=== PATIENT | male | born 1970 | race African-American/Black ===

== ENCOUNTER 2016-07-03 19:09 | Emergency (ER) | payer OTHER ==
[~2016-07-03] VITALS: Ht 167.6 cm; Wt 84.4 kg
[~2016-07-03 19:09] MED LIST: NOHOMEMEDS
[2016-07-03 20:03] LABS: HEMATOCRIT 53.3 % (38.0-50.0); MCH 28.8 PG (29.0-34.0); MCHC 33.8 G/DL (30.0-36.0); MCV 85.1 FL (86-99); MEAN PLAT.VOLUME 10.1 uM^3 (9.0-12.4); PLATELET COUNT 283 K/uL (156-360); RBC DIS.WIDTH-CV 13.2 % (11.8-14.6); RED BLOOD COUNT 6.26 M/uL (4.00-5.50); WHITE BLOOD COUNT 5.7 K/uL (4.1-10.2)
[2016-07-03 20:10] LABS: CHLORIDE 106 mEq/L (99-109); POTASSIUM 3.9 mEq/L (3.7-5.4); SODIUM 138 mEq/L (136-147)
[2016-07-03 20:12] LABS: GLUCOSE 93 mg/dL (70-99)
[2016-07-03 20:14] LABS: ANION GAP 9 MEQ/L (2-14); TOTAL BILIRUBIN 0.5 mg/dL (0.0-1.0)
[2016-07-03 20:16] LABS: ALKALINE PHOSPHATASE 131 IU/L (3-129); GFR ESTIMATE (CALCULATED) > 59 mL/min/
[2016-07-03 20:17] LABS: UREA NITROGEN (BUN) 14 mg/dL (9-23)
[2016-07-03] MEDS ORDERED: MOTRIN600 MG PO (20:32)
[2016-07-03] MEDS ORDERED: BENTYL20 MG PO (20:32)
[2016-07-03] MEDS ORDERED: ZOFRAN ODT4 MG PO (20:32)
[2016-07-03 21:26] VITALS: BP 143/91
== END 2016-07-03 21:25 | disposition home or self-care (01) ==
LOC: EME 19:09
PROVIDERS: Nurse Practitioner Family
DX: R11.2 Nausea with vomiting, unspecified (principal); R19.7 Diarrhea, unspecified; R14.0 Abdominal distension (gaseous)
CPT/HCPCS: 74000; 80053; 85027; 99281; 99284; J1885; J2405; J7030

== ENCOUNTER 2016-10-29 01:37 | Emergency (ER) | payer OTHER ==
[~2016-10-29] VITALS: Ht 177.8 cm; Wt 86.5 kg
[~2016-10-29 01:37] MED LIST changes: +BENTYL20 MG PO; +MOTRIN600 MG PO; +ZOFRAN ODT4 MG PO
[2016-10-29 02:06] LABS: HEMATOCRIT 40.7 % (38.0-50.0); MCH 28.6 PG (29.0-34.0); MCHC 33.9 G/DL (30.0-36.0); MCV 84.4 FL (86-99); MEAN PLAT.VOLUME 10.1 uM^3 (9.0-12.4); PLATELET COUNT 272 K/uL (156-360); RBC DIS.WIDTH-CV 12.9 % (11.8-14.6); RBC DIS.WIDTH-SD 39.5 % (39-53); RED BLOOD COUNT 4.82 M/uL (4.00-5.50); WHITE BLOOD COUNT 5.7 K/uL (4.1-10.2)
[2016-10-29 02:18] LABS: CHLORIDE 104 mEq/L (99-109); POTASSIUM 3.6 mEq/L (3.7-5.4); SODIUM 137 mEq/L (136-147)
[2016-10-29 02:19] LABS: GLUCOSE 97 mg/dL (70-99)
[2016-10-29 02:21] LABS: ANION GAP 11 MEQ/L (2-14)
[2016-10-29 02:23] LABS: GFR ESTIMATE (CALCULATED) > 59 mL/min/
[2016-10-29 02:24] LABS: UREA NITROGEN (BUN) 17 mg/dL (9-23)
[2016-10-29 02:27] LABS: TROP-I INTERPRETATION NEGATIVE; TROPONIN-I < 0.01 ng/mL (0.0-0.30)
[2016-10-29 04:45] LABS: TROP-I INTERPRETATION NEGATIVE; TROPONIN-I < 0.01 ng/mL (0.0-0.30)
[2016-10-29 05:09] VITALS: BP 161/96
== END 2016-10-29 05:09 | disposition home or self-care (01) ==
LOC: EME 01:37
PROVIDERS: Emergency Medicine
DX: R07.89 Other chest pain (principal); R06.02 Shortness of breath; M54.9 Dorsalgia, unspecified
CPT/HCPCS: 71020; 80048; 84484; 85027; 93005; 99281; 99284

== ENCOUNTER 2017-05-22 19:25 | Emergency (ER) | payer OTHER ==
[~2017-05-22] VITALS: Ht 175.3 cm; Wt 83.5 kg
[2017-05-22 20:07] LABS: HEMATOCRIT 41.2 % (38.0-50.0); HEMOGLOBIN 14.3 G/DL (12.5-16.6); MCH 29.5 PG (29.0-34.0); MCHC 34.7 G/DL (30.0-36.0); MCV 85.1 FL (86-99); PLATELET COUNT 216 K/uL (156-360); RBC DIS.WIDTH-CV 12.7 % (11.8-14.6); RBC DIS.WIDTH-SD 39.5 % (39-53); RED BLOOD COUNT 4.84 M/uL (4.00-5.50); WHITE BLOOD COUNT 5.4 K/uL (4.1-10.2)
[2017-05-22 20:16] LABS: ALBUMIN 3.7 g/dL (3.2-4.8); CHLORIDE 105 mEq/L (99-109); POTASSIUM 4.4 mEq/L (3.7-5.4); SODIUM 135 mEq/L (136-147)
[2017-05-22 20:18] LABS: GLUCOSE 84 mg/dL (70-99); TOTAL PROTEIN 7.8 g/dL (6.4-8.3)
[2017-05-22 20:20] LABS: TOTAL BILIRUBIN 0.3 mg/dL (0.0-1.0)
[2017-05-22 20:22] LABS: ALKALINE PHOSPHATASE 128 IU/L (3-129); CREATININE 1.1 mg/dL (0.6-1.3); GFR ESTIMATE (CALCULATED) > 59 mL/min/ (58.99-99999)
[2017-05-22 20:23] LABS: UREA NITROGEN (BUN) 16 mg/dL (9-23)
[2017-05-22 20:24] LABS: AST (GOT) 37 IU/L (2-34)
[2017-05-22 20:25] LABS: ALT (GPT) 30 IU/L (3-49)
[2017-05-22 22:04] LABS: APPEARANCE CLEAR ((CLEAR)); BILIRUBIN NEGATIVE; BLOOD NEGATIVE; COLOR COLORLESS ((YELLOW)); GLUCOSE (STRIP) NEGATIVE; KETONES NEGATIVE; LEUKOCYTES NEGATIVE; NITRITE NEGATIVE; PROTEIN (STRIP) NEGATIVE; SPECIFIC GRAVITY 1.005 (1.000-1.030); UCUL ADDED? NO; UROBILINOGEN 0.2 MG/DL (0.2-1.0)
[2017-05-22 22:30] LABS: LIPASE 48 U/L (1.0-51.0)
[2017-05-22 22:33] LABS: TROP-I INTERPRETATION NEGATIVE; TROPONIN-I < 0.01 ng/mL (0.0-0.30)
[2017-05-23 00:23] LABS: TROP-I INTERPRETATION NEGATIVE; TROPONIN-I < 0.01 ng/mL (0.0-0.30)
[2017-05-23 01:03] VITALS: BP 143/91
== END 2017-05-23 01:06 | disposition home or self-care (01) ==
LOC: EME 19:25
PROVIDERS: Physician Assistant
DX: R53.1 Weakness (principal); R19.7 Diarrhea, unspecified
CPT/HCPCS: 71046; 80053; 81003; 83690; 84484; 85027; 93005; 99281; 99284